=== PATIENT | female | born 1960 | race Caucasian/White ===

== ENCOUNTER 2018-07-13 15:23 | Emergency (ER) | payer MEDICAID ==
[2018-07-13 15:54] VITALS: RESP 20; TEMP 98; O2SAT 96
[2018-07-13 16:01] VITALS: BP 157/88; PULSE 93
[2018-07-13] MEDS ORDERED: KETOROLAC TROMETHAMINE 30 MG/ML SOL IM ONE (17:00)
[2018-07-13] MEDS ORDERED: KETOROLAC TROMETHAMINE 30 MG/ML SOL ONE (17:05)
== END 2018-07-13 17:20 | disposition home or self-care (01) | DRG 563 ==
LOC: ED 15:23
DX: S46.911A Strain of unspecified muscle, fascia and tendon at shoulder and upper arm level, right arm, initial encounter (principal); W19.XXXA Unspecified fall, initial encounter
CPT/HCPCS: 73030; 96372; 99282; 99283; J1885